=== PATIENT | male | born 1985 | race Caucasian/White ===

== ENCOUNTER 2016-09-14 21:23 | Emergency (ER) | payer SELFPAY ==
[2016-09-14 21:30] VITALS: RESP 16; TEMP 98.2
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
== END 2016-09-14 21:46 | disposition home or self-care (01) ==
LOC: ER 21:23
DX: F41.9 Anxiety disorder, unspecified (principal); R11.0 Nausea
CPT/HCPCS: 99282

== ENCOUNTER 2017-01-19 19:37 | Emergency (ER) | payer SELFPAY ==
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
[2017-01-19 22:22] VITALS: RESP 18; TEMP 97.7
--- NOTE | 2017-01-20 08:19 | DI ---
RIGHT FOOT, 01/19/2017 7:57 PM: Clinical History: Injury. An anvil fell on the patient's foot. Previous Exam: None at this facility. 3 views are submitted. There is no acute soft tissue, osseous, or joint abnormality. Reading: Normal right foot exam.
== END 2017-01-19 20:36 | disposition home or self-care (01) ==
LOC: ER 19:37
DX: S90.31XA Contusion of right foot, initial encounter (principal); W22.8XXA Striking against or struck by other objects, initial encounter
CPT/HCPCS: 73630; 99282